=== PATIENT | male | born 1995 | race Caucasian/White ===

== ENCOUNTER 2017-10-16 20:42 | Emergency (ER) | payer OTHER, MEDICAID ==
[2017-10-16 21:45] LABS: APPEARANCE,URINE SLIGHTLY-CLOUDY; BILIRUBIN,URINE NEGATIVE (NEGATIVE); GLUCOSE, URINE NEGATIVE (NEGATIVE); KETONES,URINE NEGATIVE (NEGATIVE); LEUKOCYTE ESTERASE,URINE NEGATIVE (NEGATIVE); NITRITE,URINE NEGATIVE (NEGATIVE); PROTEIN,URINE >=500 mg/dL (NEGATIVE); URINE SPECIFIC GRAVITY 1.034
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
[2017-10-16] MEDS ORDERED: HYDROCODONE/ACETAMINOPHEN 5-325 MG TABLET PO ONE (22:04)
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
[2017-10-17 00:03] VITALS: BP 111/66
== END 2017-10-17 00:03 | disposition home or self-care (01) ==
LOC: ER 20:42
DX: S60.512A Abrasion of left hand, initial encounter (principal); M54.5 Low back pain; M79.89 Other specified soft tissue disorders; V87.7XXA Person injured in collision between other specified motor vehicles (traffic), initial encounter
CPT/HCPCS: 72128; 72131; 81001; 99284